=== PATIENT | male | born 1970 | race Caucasian/White ===

== ENCOUNTER 2016-11-30 11:32 | Inpatient (IN) | payer OTHER ==
[~2016-11-30] VITALS: Ht 167.6 cm; Wt 87.9 kg
[~2016-11-30 11:32] MED LIST: HYDROCHLOROTH12.5 MG PO; MOTRIN600 MG PO; Norvasc PO
[2016-11-30 13:56] VITALS: BP 157/94
[2016-11-30] MEDS ORDERED: NICODERM CQ1 EAC2 TD (14:31)
[2016-11-30] MEDS ORDERED: LOVENOX40 MG/0.4 SQ (14:32)
[2016-11-30] MEDS ORDERED: MULTI-VITAMIN-1 EACH PO (14:33)
[2016-11-30] MEDS ORDERED: PERI-COLACE TA1 EACH PO (14:34)
[2016-11-30] MEDS ORDERED: MIRALAX17 GM PO (14:35)
[2016-11-30] MEDS ORDERED: PERCOCET 5/31 TABLET PO (14:36)
[2016-11-30 15:22] VITALS: BP 162/96
[2016-12-01] VITALS: BP 140/95
[2016-12-01 04:26] VITALS: BP 155/93
[2016-12-01 06:48] LABS: HEMATOCRIT 41.3 % (38.0-50.0); MCHC 34.1 G/DL (30.0-36.0); MCV 93.9 FL (86-99); MEAN PLAT.VOLUME 10.4 uM^3 (9.0-12.4); PLATELET COUNT 246 K/uL (156-360); RBC DIS.WIDTH-CV 14.6 % (11.8-14.6); RBC DIS.WIDTH-SD 50.3 % (39-53); WHITE BLOOD COUNT 8.4 K/uL (4.1-10.2)
[2016-12-01 07:15] LABS: ALKALINE PHOSPHATASE 31 IU/L (3-129); ANION GAP 8 MEQ/L (2-14); CHLORIDE 100 MEQ/L (99-109); GFR ESTIMATE (CALCULATED) > 59 mL/min/; GLUCOSE 95 mg/dL (70-99); POTASSIUM 4.6 MEQ/L (3.7-5.4); SAMPLE HEMOLYSIS CHECK 0; SAMPLE ICTERIC CHECK 0; SAMPLE LIPEMIA CHECK 0; SODIUM 139 MEQ/L (136-147); TOTAL BILIRUBIN 0.4 MG/DL (0.0-1.0); UREA NITROGEN (BUN) 23 mg/dL (9-23)
[2016-12-01 15:18] VITALS: BP 151/91
[2016-12-01 15:44] VITALS: BP 140/88
[2016-12-02 03:41] VITALS: BP 149/75
[2016-12-02 13:21] VITALS: BP 140/96
[2016-12-02 16:24] VITALS: BP 139/91
[2016-12-03 04:20] VITALS: BP 123/79
[2016-12-03 15:25] VITALS: BP 142/87
[2016-12-04 05:42] VITALS: BP 136/80
[2016-12-04] MEDS ORDERED: AMLODIPINE BES2.5 MG PO (12:49)
[2016-12-04] MEDS ORDERED: ZINC SULFATE220 M1 PO (12:50)
[2016-12-04] MEDS ORDERED: ASCORBIC ACID500 M3 PO (12:51)
[2016-12-04] MEDS ORDERED: PERI-COLACE TA1 EACH PO (12:51)
[2016-12-04] MEDS ORDERED: FOLIC ACID1 MG PO (12:51)
[2016-12-04] MEDS ORDERED: PERCOCET 5/31 TABLET PO (12:52)
[2016-12-04] MEDS ORDERED: GABAPENTIN100 MG PO (12:52)
[2016-12-04 14:48] VITALS: BP 157/89
== END 2016-12-04 16:37 | DRG 561 ==
LOC: 3WEST 11:32
PROVIDERS: Physical Medicine & Rehabilitation Pain Medicine
PROC: F07M7ZZ Manual Therapy Techniques Treatment of Musculoskeletal System - Whole Body (ICD-10-PCS; principal; 2016-11-30)
DX: S82.891D Other fracture of right lower leg, subsequent encounter for closed fracture with routine healing (principal); S93.401D Sprain of unspecified ligament of right ankle, subsequent encounter; Z68.31 Body mass index [BMI] 31.0-31.9, adult; S01.01XD Laceration without foreign body of scalp, subsequent encounter; I45.6 Pre-excitation syndrome; D72.829 Elevated white blood cell count, unspecified; F17.210 Nicotine dependence, cigarettes, uncomplicated; Z98.1 Arthrodesis status; M25.562 Pain in left knee; Z59.0 Homelessness
CPT/HCPCS: 71010; 72050; 73060; 73610; 80053; 85027; 97110 GO; 97530 GP; J1650